=== PATIENT | female | born 1980 | race Caucasian/White ===

== ENCOUNTER 2017-06-15 10:11 | Inpatient (IN) | payer MEDICAID, SELFPAY ==
[2017-06-15] VITALS (9 sets, daily range): BP systolic 110–138; BP diastolic 65–91; PULSE 122–149; RESP 13–20; TEMP 36.8–37.9; O2SAT 97–100; BMI 26.5; BMI 24.7; BMI 24.8
--- NOTE | 2017-06-15 10:25 | RAD_ITS ---
STUDY: X-RAY CHEST REASON FOR EXAM: Female, 36 years old. Cough and shortness of breath. TECHNIQUE: Single AP portable view of the chest. COMPARISON: None. FINDINGS: The lungs are clear and expanded. There is no demonstrated pleural abnormality. Normal size heart. Normal mediastinum and joseph. Normal visualized pulmonary arteries. Normal visualized aortic arch and descending thoracic aorta. Normal visualized thoracic spine. Normal visualized ribs, clavicles, and shoulders. There is no demonstrated abnormality of the visualized soft tissue structures of the upper abdomen. RAD/Chest 1 View (Portable) IMPRESSION: Normal x-ray examination of the chest. Electronically Signed: Koko Triplett MD at 11:04 EST Tel [phone], Service support ,
--- NOTE | 2017-06-15 10:26 | ED.VISSUMM ---
- ER Visit Summary Date of Service: 06/15/17 Chief Complaint: Cough, left upper quadrant abdominal pain History of Present Illness: The patient is a 36 F who presents with the above symptoms. She has had this for about 2 days. She describes the pain as aching in the left upper quadrant. Coughing makes it worse. It does radiate to the left part of her back. She denies dysuria or hematuria. No trauma. She does admit to a productive cough. She did not check her temperature at home. She does have a history of pneumonia and bronchitis. No history of kidney stones. Physical Examination: Vital signs reviewed. Significant for tachycardia. HEENT exam unremarkable. Heart is tachycardic and regular rhythm without murmurs. Lungs are clear to auscultation. Abdomen is soft and nontender. Back Is nontender. No CVA tenderness. Extremities reveal no edema. Skin exam normal. Neurologic exam normal. Test Results: White blood count 36. Creatinine 1.48 urinalysis shows 0-5 white blood cells. Lactate 1.3. Influenza testing negative. Chest x-ray is clear. CAT scan of the flank reveals pyelonephritis with other chronic changes. Emergency Department Course and Treatment: Patient was given normal saline. She is given morphine for pain. Treatment Plan: Patient will be treated with IV Rocephin for pyelonephritis. She meets sepsis criteria and will be admitted to the hospital Disposition: Admit Impression: Sepsis, pyelonephritis This note was generated with [employer] dictation software. It may contain incorrect words, spelling, and punctuation that were not noted in review of the chart prior to signing ED Disposition - Plan for ED Patient: Chief Complaint: Chest Other Referrals: Care Physician,No Primary [Primary Care Provider] -
[2017-06-15 11:00] LABS: Color, Urine Yellow (Yellow); Glucose, Dipstick Normal (Normal); Leukocyte Esterase-Dipstick Negative /ul (Negative); Nitrite-Dipstick Negative (Negative); Occult Blood-Urine 50 /ul (Negative); Protein-Dipstick 30 mg/dl (Negative); Urine Bilirubin Dipstick Negative (Negative); Urine Clarity Sl. Cloudy (Clear); Urine Urobilinogen Normal (Normal)
[2017-06-15 11:04] LABS: ALB/GLOB Ratio 0.8 RATIO (0.9-2.4); AST(SGOT) 147 U/L (15-37); Alanine Aminotransfer ALT/SGPT 176 U/L (12-78); Albumin, Serum 3.9 g/dL (3.4-5.0); Alkaline Phosphatase 65 U/L (45-117); Anion Gap 11 (5-15); BUN 17 mg/dL (7-18); BUN/Creat Ratio 11.5 RATIO (10-20); Calcium,Total 9.4 mg/dL (8.5-10.1); Chloride 100 mmol/L (98-107); Creatinine, Serum 1.48 mg/dL (0.55-1.02); EST Glomerular Filtration Rate 43 mL/min (>60); Est Glom Filt Rate - Afr Amer 52 mL/min (>60); Estimated Creatinine Clearance 44.31 ml/min; Globulin 4.8 g/dL (2.2-4.2); Glucose 134 mg/dL (70-110); Potassium 3.7 mmol/L (3.5-5.1); Protein, Total 8.7 g/dL (6.4-8.2); Sodium Level 135 mmol/L (136-145)
[2017-06-15 11:05] LABS: Absolute Lymphocyte Count 1.34 X10^3/ul (0.83-4.51); Basophil# 0.02 X10^3/uL; Basophil% 0.1 % (0-1); Hematocrit 43.8 % (37-47); Hemoglobin 15.3 g/dl (12.0-15.0); Lymphocyte # 1.34 X10^3/ul (4.0); Lymphocyte % 3.7 % (19-41); Mean Corp Hgb Conc 34.9 g/gl (32-36); Mean Corpuscular Hgb 30.7 pg (27.0-32.0); Mean Corpuscular Volume 87.8 fL (81-99); Mean Platelet Vol. 10.8 fl (6.2-12.0); Monocyte# 2.52 X10^3/uL; Neutrophil # 31.98 X10^3/uL (2.7-7.7); Neutrophil % 88.7 % (47-70); Platelet Count 228 K/mm3 (150-450); RBC Distribution Width CV 12.8 % (11.6-14.6); RBC Distribution Width SD 40.2 fl (35.1-43.9); Red Blood Count 4.99 M/mm3 (4.2-5.4)
[2017-06-15 11:09] LABS: Internal QC Validated? YES +Cl - CLEAR BKGD; Pregnancy, Urine Negative Negative
[2017-06-15 11:11] LABS: Lactic Acid 1.3 mmol/L (0.4-2.0)
[2017-06-15 11:13] LABS: Differential Indicated SCAN CRITERIA MET; POSITIVE COUNT YES; POSITIVE DIFFERENTIAL YES; POSITIVE MORPHOLOGY NO
--- NOTE | 2017-06-15 11:13 | ED.RN ---
WBC 36.[address] LAB DR ROBERTS AWARE
[2017-06-15 11:19] LABS: Ketone-Dipstick 150 mg/dl (Negative)
[2017-06-15 11:22] LABS: Bacteria 1+ /hpf (None Seen); Mucous, Urine RARE /hpf (<or=2+); Red Blood Cells-Urine 0-5 SEEN /hpf (0-5); Squamous Epithelial Cells - UA 0-5 SEEN /hpf (5-10); White Blood Cells 0-5 SEEN /hpf (0-5)
--- NOTE | 2017-06-15 12:54 | CT_ITS ---
STUDY: CT ABDOMEN AND PELVIS WITH CONTRAST REASON FOR EXAM: Female, 36 years old. Shortness of breath and left lower quadrant pain for 2 days. RADIATION DOSAGE (If Supplied By Facility): CTDIvol = ( 10.19 ) mGy, DLP = ( 804.66 ) mGycm TECHNIQUE: Transaxial images were obtained from the dome of the diaphragm to the symphysis pubis without oral contrast. 100ML ml of Isovue 300 contrast was administered. Sagittal and coronal images were reconstructed. Individualized dose optimization techniques were used for this CT. COMPARISON: None. FINDINGS: There is mild elevation of right diaphragm. The visualized lung bases are unremarkable. The visualized portions of the heart are within normal limits. Normal liver. The patent portal vein diameter is 12.5 mm. Normal gallbladder and extrahepatic biliary system. The diameter of the common bile duct in the head of the pancreas is 3 mm. Normal spleen. Normal pancreas. Normal bilateral adrenal glands. Normal right kidney, measuring 10.7 x 5.1 x 5.5 cm. There is a diffusely abnormal appearing left kidney, measuring 11.05 x 6.1 x 5.35 cm. There is a patchy pattern of enhancement, with zones of virtually absent enhancement extending all the way from the hilus to the capsule. This is most confluent in the upper pole. There is small volume of perinephric fluid. Contrast is excreted on delayed imaging. No hydronephrosis. Normal visualized stomach. 2 loops of mildly distended gas and fluid-filled small bowel in the epigastrium/left upper quadrant may be incidental, but could also reflect a mild localized ileus. Otherwise, normal small intestine. Normal colon. There is non-visualization of the appendix. Normal abdominal aorta. Normal inferior vena cava. There are several borderline to mildly enlarged periaortic retroperitoneal lymph nodes. Normal urinary bladder. Normal size retroverted uterus. Rounded 8 mm lesion in the body of the uterus anterior to the endometrium consistent with a small fibroid, and there may be a less distinctly defined 2. 201.7 x 2.25 cm anterior subserosal fibroid. There is a thinly rim-enhancing 8 mm low-density consistent with a maturing follicular cyst in the left ovary. 2 cysts are suggested in the right ovary, the larger measuring 15 x 7.5 x 11 mm Normal abdominal wall. There are degenerative changes of the visualized lumbar spine. CT/Abdomen/Pelvis W IV Cont ONLY IMPRESSION: 1. Abnormal appearance of the left kidney suggesting pyelonephritis. Other infiltrating benign or malignant process not excluded by this exam alone. No hydronephrosis. 2. No sign of bowel obstruction. The appendix is not visualized. 3. Borderline to mildly enlarged periaortic retroperitoneal lymph nodes, likely reactive. 4. Retroverted uterus with anterior myometrial masses consistent with fibroids. 5. Bilateral follicular cysts in the ovaries, as noted. 6. Mild degenerative changes in the mid lumbar spine. N.B. : The above information has been verbally conveyed by Kehinde Mcclain MD to Leighton Dyer, Referring Physician, on 06/15/2017 14:37:36 (ET). Electronically Signed: Kehinde Mcclain MD at 14:38 EST , Service support , N.B. : The above information has been verbally conveyed by Kehinde Mcclain MD to Leighton Dyer, Referring Physician, on 06/15/2017 14:37:36 (ET).
[2017-06-15] MEDS: 0.9% Normal Saline 1,000 ML 999 ML IV (13:01)
[2017-06-15] MEDS: Ondansetron 4 MG/2 ML Vial IV (13:02)
--- NOTE | 2017-06-15 15:21 | PCM.HP.STD ---
Problem List (1) HERBER (acute kidney injury) Status: Acute (2) Pyelonephritis Status: Acute (3) Sepsis Status: Acute (4) Tobacco dependence Status: Chronic (5) Polysubstance abuse Status: Chronic History of Present Illness Date of Admission: 06/15/17 Chief Complaint: Left flank pain The patient is a 36 year old F with past medical history significant for polysubstance abuse including meth and tobacco who presented with left flank pain. Patient complains of a 2 week history of not feeling well she has developed intermittent fever and chills. She also felt her heart was racing. In view of worsening symptoms patient presented to the emergency department where she was found to have leukocytosis without any identifiable etiology. Subsequent evaluation with CT of the abdomen demonstrated features consistent with left pyelonephritis patient was therefore started on antibiotic therapy IV fluid and admitted to regular nursing floor for further management Past Medical History Past Medical History (Chronic Problems): Chronic Problems Tobacco dependence (Chronic) Polysubstance abuse (Chronic) Allergies No Known Allergies Allergy (Verified 08/12/16 01:52) Home Medications: Ambulatory Orders Medication Instructions Recorded No Known/Unobtainable [No Known 08/12/16 Home Medications] Smoking Status: Current every day smoker - *Family History Maternal History Items: No pertinent history Review of Systems Constitutional: Reports: Chills, Fever, Malaise HEENT: Denies: Head Aches, Sinus Congestion, Sinus Drainage Cardiovascular: Denies: Chest Pain, Orthopnea, Palpitations, Paroxysmal Noc. Dyspnea Respiratory: Reports: Cough Gastrointestinal: Reports: Abdominal Pain Genitourinary: Denies: Hematuria, Urgency Musculoskeletal: Denies: Joint Pain, Joint Tenderness Skin: Denies: Rash Neurological: Denies: Focal weakness, Numbness, Tingling Psychiatric: Reports: Anxiety, Depression VTE Information - Inpt Only VTE Present on Admission: No VTE Mechan Device Prophylaxis: Knee High MARY ANN Hose VTE Pharm Prophylaxis ordered?: Yes Patient Problems: Active and Suspected Problems Pyelonephritis (Acute) Sepsis (Acute) HERBER (acute kidney injury) (Acute) Objective: GENERAL: cooperative HEENT: Clear conjunctiva, NECK; supple, normal thyroid, CHEST: Clear to auscultation bilaterally, HEART: Regular S1 S2 tachycardic ABDOMEN: soft, non-tender, normoactive bowel sounds, : Left flank tenderness EXTREMITIES: No edema, no clubbing, no cyanosis. 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 SKIN: No rash - Physical Exam Vital Signs Temp Pulse Resp BP Pulse Ox 98.3 F 126 H 18 128/91 H 97 06/15/17 10:13 06/15/17 15:19 06/15/17 15:19 06/15/17 15:19 06/15/17 15:19 Oxygen Delivery Method Room Air Weight: 68.039 kg Body Mass Index (BMI) 26.5 Microbiology Past 72 Hours 06/15/17 11:47 Influenza Types A,B Direct FA (BHARATI) - Final Mucosa - Nose Laboratory Tests Past 24 Hrs 06/15/17 06/15/17 06/15/17 10:36 10:36 10:36 WBC 36.0 H* RBC 4.99 Hgb 15.3 H Hct 43.8 MCV 87.8 MCH 30.7 MCHC 34.9 RDW 12.8 RDW Differential 40.2 Plt Count 228 MPV 10.8 Immature Gran % (Auto) 0.500 Neut % (Auto) 88.7 H Lymph % (Auto) 3.7 L [place] % (Auto) 7.0 Eos % (Auto) 0.0 Baso % (Auto) 0.1 Absolute Neuts (auto) 32.0 H Absolute Lymphs (auto) 1.34 Total Counted Not Reportable Differential Comment COMMENT Diff Path Review May foll Sodium 135 L Potassium 3.7 Chloride 100 Carbon Dioxide 24.0 Anion Gap 11 BUN 17 Creatinine 1.48 H Estim Creat Clear Calc 44.31 Est GFR (MDRD) Af Amer 52 L Est GFR (MDRD) Non-Af 43 L BUN/Creatinine Ratio 11.5 Glucose 134 H Lactic Acid 1.3 Calcium 9.4 Total Bilirubin 0.80 AST 147 H ALT 176 H Alkaline Phosphatase 65 Total Protein 8.7 H Albumin 3.9 Globulin 4.8 H Albumin/Globulin Ratio 0.8 L Urine Color Urine Clarity Urine pH Ur Specific [place] Urine Protein Urine Glucose (UA) Urine Ketones Urine Occult Blood Urine Nitrite Urine Bilirubin Urine Urobilinogen Ur Leukocyte Esterase Urine RBC Urine WBC Ur Squamous Epith Cells Urine Bacteria Urine Mucus Urine Test 06/15/17 10:50 WBC RBC Hgb Hct MCV MCH MCHC RDW RDW Differential Plt Count MPV Immature Gran % (Auto) Neut % (Auto) Lymph % (Auto) [place] % (Auto) Eos % (Auto) Baso % (Auto) Absolute Neuts (auto) Absolute Lymphs (auto) Total Counted Differential Comment Diff Path Review Sodium Potassium Chloride Carbon Dioxide Anion Gap BUN Creatinine Estim Creat Clear Calc Est GFR (MDRD) Af Amer Est GFR (MDRD) Non-Af BUN/Creatinine Ratio Glucose Lactic Acid Calcium Total Bilirubin AST ALT Alkaline Phosphatase Total Protein Albumin Globulin Albumin/Globulin Ratio Urine Color Yellow Urine Clarity Sl. Cloudy Urine pH 6.0 Ur Specific [place] 1.020 Urine Protein 30 H Urine Glucose (UA) Normal Urine Ketones 150 H Urine Occult Blood 50 H Urine Nitrite Negative Urine Bilirubin Negative Urine Urobilinogen Normal Ur Leukocyte Esterase Negative Urine RBC 0-5 SEEN Urine WBC 0-5 SEEN Ur Squamous Epith Cells 0-5 SEEN Urine Bacteria 1+ Urine Mucus RARE Urine Test Negative Assessment/Plan Active and Suspected Problems Pyelonephritis (Acute) Sepsis (Acute) HERBER (acute kidney injury) (Acute) Patient is a 36-year-old lady presented with left flank pain leukocytosis as well as subjective fever and chills 1. Sepsis secondary to acute pyelonephritis involving the left kidney admitted to a regular nursing floor after cultures have been obtained in the ED patient placed on Rocephin IV fluids, pain medications as well as antinausea medication 2. Acute kidney injury secondary to above patient on fluids with monitoring of electrolyte 3. Tobacco dependence counseled on cessation, offered nicotine patch for tobacco cravings 4. Polysubstance abuse counseled on cessation 5. DVT prophylaxis SC Lovenox Clinical Impression(s) from Imaging Studies Chest X-Ray 06/15/17 10:25 IMPRESSION: Normal x-ray examination of the chest. Electronically Signed: Koko Triplett MD at 11:04 EST Tel [phone], Service support , Abdomen/Pelvis CT 06/15/17 12:54 IMPRESSION: 1. Abnormal appearance of the left kidney suggesting pyelonephritis. Other infiltrating benign or malignant process not excluded by this exam alone. No hydronephrosis. 2. No sign of bowel obstruction. The appendix is not visualized. 3. Borderline to mildly enlarged periaortic retroperitoneal lymph nodes, likely reactive. 4. Retroverted uterus with anterior myometrial masses consistent with fibroids. 5. Bilateral follicular cysts in the ovaries, as noted. 6. Mild degenerative changes in the mid lumbar spine. N.B. : The above information has been verbally conveyed by Kehinde Mcclain MD to Leighton Dyer, Referring Physician, on 06/15/2017 14:37:36 (ET). Electronically Signed: Kehinde Mcclain MD at 14:38 EST , Service support , N.B. : The above information has been verbally conveyed by Kehinde Mcclain MD to Leighton Dyer, Referring Physician, on 06/15/2017 14:37:36 (ET). Code Visit Inpatient E&M: 77320 Subs Hosp L3
--- NOTE | 2017-06-15 15:32 | HP.PCM_ITS ---
Problem List (1) HERBER (acute kidney injury) Status: Acute (2) Pyelonephritis Status: Acute (3) Sepsis Status: Acute (4) Tobacco dependence Status: Chronic (5) Polysubstance abuse Status: Chronic History of Present Illness Date of Admission: 06/15/17 Chief Complaint: Left flank pain The patient is a 36 year old F with past medical history significant for polysubstance abuse including meth and tobacco who presented with left flank pain. Patient complains of a 2 week history of not feeling well she has developed intermittent fever and chills. She also felt her heart was racing. In view of worsening symptoms patient presented to the emergency department where she was found to have leukocytosis without any identifiable etiology. Subsequent evaluation with CT of the abdomen demonstrated features consistent with left pyelonephritis patient was therefore started on antibiotic therapy IV fluid and admitted to regular nursing floor for further management Past Medical History Past Medical History (Chronic Problems): Chronic Problems Tobacco dependence (Chronic) Polysubstance abuse (Chronic) Allergies No Known Allergies Allergy (Verified 08/12/16 01:52) Home Medications: Ambulatory Orders Medication Instructions Recorded No Known/Unobtainable [No Known 08/12/16 Home Medications] Smoking Status: Current every day smoker - *Family History Maternal History Items: No pertinent history Review of Systems Constitutional: Reports: Chills, Fever, Malaise HEENT: Denies: Head Aches, Sinus Congestion, Sinus Drainage Cardiovascular: Denies: Chest Pain, Orthopnea, Palpitations, Paroxysmal Noc. Dyspnea Respiratory: Reports: Cough Gastrointestinal: Reports: Abdominal Pain Genitourinary: Denies: Hematuria, Urgency Musculoskeletal: Denies: Joint Pain, Joint Tenderness Skin: Denies: Rash Neurological: Denies: Focal weakness, Numbness, Tingling Psychiatric: Reports: Anxiety, Depression VTE Information - Inpt Only VTE Present on Admission: No VTE Mechan Device Prophylaxis: Knee High MARY ANN Hose VTE Pharm Prophylaxis ordered?: Yes Patient Problems: Active and Suspected Problems Pyelonephritis (Acute) Sepsis (Acute) HERBER (acute kidney injury) (Acute) Objective: GENERAL: cooperative HEENT: Clear conjunctiva, NECK; supple, normal thyroid, CHEST: Clear to auscultation bilaterally, HEART: Regular S1 S2 tachycardic ABDOMEN: soft, non-tender, normoactive bowel sounds, : Left flank tenderness EXTREMITIES: No edema, no clubbing, no cyanosis. 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 SKIN: No rash - Physical Exam Vital Signs Temp Pulse Resp BP Pulse Ox 98.3 F 126 H 18 128/91 H 97 06/15/17 10:13 06/15/17 15:19 06/15/17 15:19 06/15/17 15:19 06/15/17 15:19 Oxygen Delivery Method Room Air Weight: 68.039 kg Body Mass Index (BMI) 26.5 Microbiology Past 72 Hours 06/15/17 11:47 Influenza Types A,B Direct FA (BHARATI) - Final Mucosa - Nose Laboratory Tests Past 24 Hrs 06/15/17 06/15/17 06/15/17 10:36 10:36 10:36 WBC 36.0 H* RBC 4.99 Hgb 15.3 H Hct 43.8 MCV 87.8 MCH 30.7 MCHC 34.9 RDW 12.8 RDW Differential 40.2 Plt Count 228 MPV 10.8 Immature Gran % (Auto) 0.500 Neut % (Auto) 88.7 H Lymph % (Auto) 3.7 L [place] % (Auto) 7.0 Eos % (Auto) 0.0 Baso % (Auto) 0.1 Absolute Neuts (auto) 32.0 H Absolute Lymphs (auto) 1.34 Total Counted Not Reportable Differential Comment COMMENT Diff Path Review May foll Sodium 135 L Potassium 3.7 Chloride 100 Carbon Dioxide 24.0 Anion Gap 11 BUN 17 Creatinine 1.48 H Estim Creat Clear Calc 44.31 Est GFR (MDRD) Af Amer 52 L Est GFR (MDRD) Non-Af 43 L BUN/Creatinine Ratio 11.5 Glucose 134 H Lactic Acid 1.3 Calcium 9.4 Total Bilirubin 0.80 AST 147 H ALT 176 H Alkaline Phosphatase 65 Total Protein 8.7 H Albumin 3.9 Globulin 4.8 H Albumin/Globulin Ratio 0.8 L Urine Color Urine Clarity Urine pH Ur Specific [place] Urine Protein Urine Glucose (UA) Urine Ketones Urine Occult Blood Urine Nitrite Urine Bilirubin Urine Urobilinogen Ur Leukocyte Esterase Urine RBC Urine WBC Ur Squamous Epith Cells Urine Bacteria Urine Mucus Urine Test 06/15/17 10:50 WBC RBC Hgb Hct MCV MCH MCHC RDW RDW Differential Plt Count MPV Immature Gran % (Auto) Neut % (Auto) Lymph % (Auto) [place] % (Auto) Eos % (Auto) Baso % (Auto) Absolute Neuts (auto) Absolute Lymphs (auto) Total Counted Differential Comment Diff Path Review Sodium Potassium Chloride Carbon Dioxide Anion Gap BUN Creatinine Estim Creat Clear Calc Est GFR (MDRD) Af Amer Est GFR (MDRD) Non-Af BUN/Creatinine Ratio Glucose Lactic Acid Calcium Total Bilirubin AST ALT Alkaline Phosphatase Total Protein Albumin Globulin Albumin/Globulin Ratio Urine Color Yellow Urine Clarity Sl. Cloudy Urine pH 6.0 Ur Specific [place] 1.020 Urine Protein 30 H Urine Glucose (UA) Normal Urine Ketones 150 H Urine Occult Blood 50 H Urine Nitrite Negative Urine Bilirubin Negative Urine Urobilinogen Normal Ur Leukocyte Esterase Negative Urine RBC 0-5 SEEN Urine WBC 0-5 SEEN Ur Squamous Epith Cells 0-5 SEEN Urine Bacteria 1+ Urine Mucus RARE Urine Test Negative Assessment/Plan Active and Suspected Problems Pyelonephritis (Acute) Sepsis (Acute) HERBER (acute kidney injury) (Acute) Patient is a 36-year-old lady presented with left flank pain leukocytosis as well as subjective fever and chills 1. Sepsis secondary to acute pyelonephritis involving the left kidney admitted to a regular nursing floor after cultures have been obtained in the ED patient placed on Rocephin IV fluids, pain medications as well as antinausea medication 2. Acute kidney injury secondary to above patient on fluids with monitoring of electrolyte 3. Tobacco dependence counseled on cessation, offered nicotine patch for tobacco cravings 4. Polysubstance abuse counseled on cessation 5. DVT prophylaxis SC Lovenox Clinical Impression(s) from Imaging Studies Chest X-Ray 06/15/17 10:25 IMPRESSION: Normal x-ray examination of the chest. Electronically Signed: Koko Triplett MD at 11:04 EST Tel [phone], Service support , Abdomen/Pelvis CT 06/15/17 12:54 IMPRESSION: 1. Abnormal appearance of the left kidney suggesting pyelonephritis. Other infiltrating benign or malignant process not excluded by this exam alone. No hydronephrosis. 2. No sign of bowel obstruction. The appendix is not visualized. 3. Borderline to mildly enlarged periaortic retroperitoneal lymph nodes, likely reactive. 4. Retroverted uterus with anterior myometrial masses consistent with fibroids. 5. Bilateral follicular cysts in the ovaries, as noted. 6. Mild degenerative changes in the mid lumbar spine. N.B. : The above information has been verbally conveyed by Kehinde Mcclain MD to Leighton Dyer, Referring Physician, on 06/15/2017 14:37:36 (ET). Electronically Signed: Kehinde Mcclain MD at 14:38 EST , Service support , N.B. : The above information has been verbally conveyed by Kehinde Mcclain MD to Leighton Dyer, Referring Physician, on 06/15/2017 14:37:36 (ET). Code Visit Inpatient E&M: 05235 Subs Hosp L3
[2017-06-15 17:00] LABS: Hematocrit 44.5 % (37-47); Hemoglobin 14.9 g/dl (12.0-15.0); Mean Corp Hgb Conc 33.5 g/gl (32-36); Mean Corpuscular Hgb 30.6 pg (27.0-32.0); Mean Corpuscular Volume 91.4 fL (81-99); Mean Platelet Vol. 10.3 fl (6.2-12.0); Platelet Count 183 K/mm3 (150-450); RBC Distribution Width CV 12.9 % (11.6-14.6); RBC Distribution Width SD 42.7 fl (35.1-43.9); Red Blood Count 4.87 M/mm3 (4.2-5.4)
[2017-06-15] MEDS: 0.9% Normal Saline 1,000 ML 100 ML IV (17:01)
[2017-06-15 17:04] LABS: White Blood Count 32.2 K/mm3 (4.4-11.0)
[2017-06-15 17:08] LABS: International Normalized Ratio 1.5; Prothrombin Time (Protime)PT. 17.9 SECONDS (11.7-14.9)
[2017-06-15 17:09] LABS: Partial Thromboplast Time 27.3 Seconds (24.1-36.2)
[2017-06-15 17:17] LABS: ALB/GLOB Ratio 0.9 RATIO (0.9-2.4); AST(SGOT) 117 U/L (15-37); Alanine Aminotransfer ALT/SGPT 141 U/L (12-78); Albumin, Serum 3.6 g/dL (3.4-5.0); Alkaline Phosphatase 65 U/L (45-117); Anion Gap 8 (5-15); BUN 16 mg/dL (7-18); BUN/Creat Ratio 11.9 RATIO (10-20); Chloride 103 mmol/L (98-107); Creatinine, Serum 1.34 mg/dL (0.55-1.02); EST Glomerular Filtration Rate 48 mL/min (>60); Est Glom Filt Rate - Afr Amer 58 mL/min (>60); Estimated Creatinine Clearance 48.93 ml/min; Globulin 4.2 g/dL (2.2-4.2); Glucose 121 mg/dL (70-110); Potassium 4.3 mmol/L (3.5-5.1); Protein, Total 7.8 g/dL (6.4-8.2); Sodium Level 135 mmol/L (136-145)
[2017-06-15 17:25] LABS: Scan Indicated on CBC? Y/N YES- FLAGS NOTED
[2017-06-15 17:34] LABS: Lactic Acid 0.7 mmol/L (0.4-2.0)
--- NOTE | 2017-06-15 17:38 | NURSING ---
This nurse into room as yelling was noted between patient and male visitor. Male visitor left when this nurse entered room. Pt informed that there could not be yelling in the hospital. Pt stated that male visitor would not be coming back. Pt aware that if he came back and caused any issues, he would be asked to leave. pt aware.
[2017-06-15] MEDS: Acetaminophen 325 MG Tablet 650 MG PO (21:38)
[2017-06-15] MEDS: Zolpidem Tartrate 5 MG Tablet PO (21:39)
[2017-06-16] MEDS: Acetaminophen 325 MG Tablet 650 MG PO ×3 (04:04→20:05)
[2017-06-16] MEDS: 0.9% Normal Saline 1,000 ML 100 ML IV ×3 (04:05→22:13)
[2017-06-16 04:10] VITALS: BP 128/78; PULSE 116; RESP 18; TEMP 36.7; O2SAT 99
[2017-06-16] MEDS: Ceftriaxone 1 GM/50 ML BAG IV (09:26)
[2017-06-16] MEDS: Enoxaparin 40 MG/0.4 ML Syringe SC (09:29)
[2017-06-16] MEDS: Polyethylene Glycol 3350 17 GM PACKET PO (09:30)
[2017-06-16 09:32] VITALS: BP 126/85; PULSE 110; RESP 16; TEMP 36.8; O2SAT 100
--- NOTE | 2017-06-16 10:03 | PN_ITS ---
Patient Problems: Active and Suspected Problems Pyelonephritis (Acute) Sepsis (Acute) HERBER (acute kidney injury) (Acute) Subjective: Patient is a 36-year-old lady presented with left flank pain leukocytosis as well as subjective fever and chills and assessment of acute pyelonephritis made admitted to a regular nursing floor. Patient seen pain is somewhat improved however her leukocytosis remains Objective: GENERAL: cooperative HEENT: Clear conjunctiva, NECK; supple, normal thyroid, CHEST: Clear to auscultation bilaterally, HEART: Regular S1 S2 tachycardic ABDOMEN: soft, non-tender, normoactive bowel sounds, : Left flank tenderness EXTREMITIES: No edema, no clubbing, no cyanosis. 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 SKIN: No rash Vitals/I&O's: Vital Signs Temp Pulse Resp BP Pulse Ox 98.3 F 110 H 16 126/85 H 100 06/16/17 09:32 06/16/17 09:32 06/16/17 09:32 06/16/17 09:32 06/16/17 09:32 Oxygen Delivery Method Room Air Weight: 63.4 kg Body Mass Index (BMI) 24.7 Intake and Output for Last 24 Hours 06/14/17 06/15/17 06/16/17 23:59 23:59 23:59 Intake Total 500 / 500 1343 / 1343 Balance 500 / 500 1343 / 1343 Laboratory Results 06/15/17 16:47: WBC 32.2 H*, RBC 4.87, Hgb 14.9, Hct 44.5, MCV 91.4, MCH 30.6, MCHC 33.5, RDW 12.9, RDW Differential 42.7, Plt Count 183, MPV 10.3, Diff Path Review October06/15/17 16:47: PT 17.9 H, INR 1.5, APTT 27.3 06/15/17 16:47: Sodium 135 L, Potassium 4.3, Chloride 103, Carbon Dioxide 24.0, Anion Gap 8, BUN 16, Creatinine 1.34 H, Estim Creat Clear Calc 48.93, Est GFR ( MDRD) Af Amer 58 L, Est GFR (MDRD) Non-Af 48 L, BUN/Creatinine Ratio 11.9, Glucose 121 H, Calcium 9.0, Total Bilirubin 0.70, AST 117 H, ALT 141 H, Alkaline Phosphatase 65, Total Protein 7.8, Albumin 3.6, Globulin 4.2, Albumin/ Globulin Ratio 0.9 06/15/17 16:47: Lactic Acid 0.7 Current Medications Acetaminophen (Tylenol) 650 mg PO Q6H PRN PRN PRN Reason: Mild Pain (scale 0-3)/T>100.7 Last Admin: 06/16/17 04:04 Dose: 650 mg Al Hydroxide/Mg Hydroxide (Mylanta Ii) 30 ml PO Q6H PRN PRN PRN Reason: Gastric Burning Bisacodyl (Dulcolax) 10 mg PO DAILY PRN PRN PRN Reason: Constipation Docusate Sodium (Colace) 200 mg PO BID PRN PRN PRN Reason: Constipation Enoxaparin Sodium (Lovenox) 40 mg SC DAILY@1000 TONIA Last Admin: 06/16/17 09:29 Dose: 40 mg Sodium Chloride () 1,000 mls @ 100 mls/hr IV .Q10H [facility] Last Admin: 06/16/17 04:05 Dose: 100 mls/hr Ceftriaxone Sodium (Rocephin) 1 gm in 50 mls @ 100 mls/hr IV Q24H [facility] Last Admin: 06/16/17 09:26 Dose: 100 mls/hr Magnesium Hydroxide (Milk Of Magnesia) 30 ml PO DAILY PRN PRN PRN Reason: Constipation Morphine Sulfate (Morphine) 2 - 4 mg IV Q3H PRN PRN PRN Reason: Severe Pain (pain scale 6-10) Morphine Sulfate (Morphine) 2 - 4 mg IV Q3H PRN PRN PRN Reason: Severe Pain (pain scale 6-10) Ondansetron HCl (Zofran) 4 mg IV Q8H PRN PRN PRN Reason: Nausea Oxycodone HCl (Oxyir) 5 mg PO Q4H PRN PRN PRN Reason: Moderate Pain (pain scale 4-5) Polyethylene Glycol (Miralax) 17 gm PO DAILY [facility] Last Admin: 06/16/17 09:30 Dose: 17 gm Sodium Chloride () 5 - 30 ml IV UD PRN PRN Reason: SALINE FLUSH Zolpidem Tartrate (Ambien (Generic)) 5 mg PO QHS PRN PRN PRN Reason: INSOMNIA Last Admin: 06/15/17 21:39 Dose: 5 mg Assessment/Plan Active and Suspected Problems Pyelonephritis (Acute) Sepsis (Acute) HERBER (acute kidney injury) (Acute) Patient is a 36-year-old lady presented with left flank pain leukocytosis as well as subjective fever and chills 1. Sepsis secondary to acute pyelonephritis involving the left kidney admitted to a regular nursing floor after cultures have been obtained in the ED patient placed on Rocephin IV fluids, pain medications as well as antinausea medication. Patient has significant leukocytosis with still remains 2. Acute kidney injury secondary to above patient on fluids with monitoring of electrolyte; slight improvement in kidney function 3. Tobacco dependence counseled on cessation, offered nicotine patch for tobacco cravings 4. Polysubstance abuse counseled on cessation 5. DVT prophylaxis SC Lovenox Clinical Impression(s) from Imaging Studies Chest X-Ray 06/15/17 10:25 IMPRESSION: Normal x-ray examination of the chest. Electronically Signed: Koko Triplett MD at 11:04 EST Tel [phone], Service support , Abdomen/Pelvis CT 06/15/17 12:54 IMPRESSION: 1. Abnormal appearance of the left kidney suggesting pyelonephritis. Other infiltrating benign or malignant process not excluded by this exam alone. No hydronephrosis. 2. No sign of bowel obstruction. The appendix is not visualized. 3. Borderline to mildly enlarged periaortic retroperitoneal lymph nodes, likely reactive. 4. Retroverted uterus with anterior myometrial masses consistent with fibroids. 5. Bilateral follicular cysts in the ovaries, as noted. 6. Mild degenerative changes in the mid lumbar spine. N.B. : The above information has been verbally conveyed by Kehinde Mcclain MD to Leighton Dyer, Referring Physician, on 06/15/2017 14:37:36 (ET). Electronically Signed: Kehinde Mcclain MD at 14:38 EST , Service support , N.B. : The above information has been verbally conveyed by Kehinde cMclain MD to Leighton Dyer, Referring Physician, on 06/15/2017 14:37:36 (ET). Code Visit Inpatient E&M: 64664 Subs Hosp L3
[2017-06-16 11:04] LABS: Pathologist Review Reviewed
[2017-06-16 11:05] LABS: Pathologist Review Reviewed
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
--- NOTE | 2017-06-16 14:51 | CASEMGMT ---
RN CM assessment note: Pt presented to ER with L flank pain, independent @ home.Pt is sleeping. Noted Pastoral care's note and referral for assessment given to GEN Diaz. Will continue to follow and assist w/dc planning if needs arise. Elizabeth FERRON RN ACM
[2017-06-16 15:49] VITALS: BP 122/79; PULSE 103; RESP 16; TEMP 37.3; O2SAT 98
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
[2017-06-16 21:49] VITALS: BP 117/78; PULSE 102; RESP 18; TEMP 37.6; O2SAT 96
[2017-06-16 21:58] VITALS: PULSE 102; RESP 18; O2SAT 96
[2017-06-17 02:23] VITALS: BP 116/7; PULSE 96; RESP 18; TEMP 38.6; O2SAT 97
[2017-06-17 02:30] VITALS: RESP 18; O2SAT 97
[2017-06-17 04:34] VITALS: BP 114/74; PULSE 85; RESP 18; TEMP 37.4; O2SAT 96
[2017-06-17 06:11] LABS: Absolute Lymphocyte Count 2.15 X10^3/ul (0.83-4.51); Absolute Neutrophil Count 12.5 X10^3/uL (2.0-7.7); Basophil# 0.01 X10^3/uL; Basophil% 0.1 % (0-1); Eosinophil# 0.09 X10^3/uL; Eosinophils% 0.6 % (0-5); Hematocrit 32.9 % (37-47); Hemoglobin 10.8 g/dl (12.0-15.0); Lymphocyte # 2.15 X10^3/ul (4.0); Lymphocyte % 13.4 % (19-41); Mean Corp Hgb Conc 32.8 g/gl (32-36); Mean Corpuscular Hgb 29.8 pg (27.0-32.0); Mean Corpuscular Volume 90.9 fL (81-99); Monocyte# 1.31 X10^3/uL; Monocyte% 8.1 % (0-10); Neutrophil # 12.47 X10^3/uL (2.7-7.7); Neutrophil % 77.5 % (47-70); Platelet Count 136 K/mm3 (150-450); RBC Distribution Width CV 12.6 % (11.6-14.6); RBC Distribution Width SD 40.9 fl (35.1-43.9); Red Blood Count 3.62 M/mm3 (4.2-5.4); White Blood Count 16.1 K/mm3 (4.4-11.0)
[2017-06-17 06:14] LABS: POSITIVE COUNT NO; POSITIVE DIFFERENTIAL NO; POSITIVE MORPHOLOGY NO
[2017-06-17 06:56] LABS: Anion Gap 8 (5-15); BUN 13 mg/dL (7-18); BUN/Creat Ratio 14.5 RATIO (10-20); Calcium,Total 8.2 mg/dL (8.5-10.1); Chloride 110 mmol/L (98-107); EST Glomerular Filtration Rate 76 mL/min (>60); Est Glom Filt Rate - Afr Amer 92 mL/min (>60); Estimated Creatinine Clearance 72.86 ml/min; Glucose 105 mg/dL (70-110); Potassium 3.7 mmol/L (3.5-5.1); Sodium Level 140 mmol/L (136-145)
[2017-06-17] MEDS: 0.9% Normal Saline 1,000 ML 100 ML IV (07:00)
--- NOTE | 2017-06-17 08:58 | PCM.DC ---
- Discharge Diagnoses Current Active Problems: Current Active and Chronic Problems Pyelonephritis (Acute) Sepsis (Acute) Tobacco dependence (Chronic) Polysubstance abuse (Chronic) HERBER (acute kidney injury) (Acute) You will use the following diet at home:: No restrictions Discharge Activity: Return to Normal Activity, May not drive while taking narcotic pain medications. Allergies/Adverse Reactions: Allergies No Known Allergies Allergy (Verified 08/12/16 01:52) Medications to take at Discharge Citalopram Hydrobromide [Celexa] 20 mg PO DAILY #60 tab 06/17/17 Levofloxacin [Levaquin] 500 mg PO DAILY #7 tab 06/17/17 The following prescriptions were given: Citalopram Hydrobromide [Celexa] 20 mg PO DAILY #60 tab Levofloxacin [Levaquin] 500 mg PO DAILY #7 tab Primary Care Physician: Care Physician,No Primary [Primary Care Provider] - Please Follow Up With: Lottie Morocho MD When: Tuesday Proposed Discharge Date: 06/17/17
--- NOTE | 2017-06-17 09:00 | PCM.DC.SUM ---
Discharge Date and Diagnosis - Problem List Patient Problems: Active and Suspected Problems Pyelonephritis (Acute) Sepsis (Acute) HERBER (acute kidney injury) (Acute) Date of Admission: 06/15/17 Date of Discharge: 06/17/17 - Primary Discharge Diagnosis Active and Suspected Problems Pyelonephritis (Acute) Sepsis (Acute) HERBER (acute kidney injury) (Acute) - Secondary Discharge Diagnosis Chronic Problems Tobacco dependence (Chronic) Polysubstance abuse (Chronic) Hospital Course and Treatment Imaging Results: Clinical Impression(s) from Imaging Studies Chest X-Ray 06/15/17 10:25 IMPRESSION: Normal x-ray examination of the chest. Electronically Signed: Koko Triplett MD at 11:04 EST Tel [phone], Service support , Abdomen/Pelvis CT 06/15/17 12:54 IMPRESSION: 1. Abnormal appearance of the left kidney suggesting pyelonephritis. Other infiltrating benign or malignant process not excluded by this exam alone. No hydronephrosis. 2. No sign of bowel obstruction. The appendix is not visualized. 3. Borderline to mildly enlarged periaortic retroperitoneal lymph nodes, likely reactive. 4. Retroverted uterus with anterior myometrial masses consistent with fibroids. 5. Bilateral follicular cysts in the ovaries, as noted. 6. Mild degenerative changes in the mid lumbar spine. N.B. : The above information has been verbally conveyed by Kehinde Mcclain MD to Leighton Dyer, Referring Physician, on 06/15/2017 14:37:36 (ET). Electronically Signed: Kehinde Mcclain MD at 14:38 EST , Service support , N.B. : The above information has been verbally conveyed by Kehinde Mcclain MD to Leighton Dyer, Referring Physician, on 06/15/2017 14:37:36 (ET). Summary of Care Provided: Patient is a 36-year-old lady presented with left flank pain leukocytosis as well as subjective fever and chills 1. Sepsis secondary to acute pyelonephritis involving the left kidney admitted to a regular nursing floor after cultures have been obtained in the ED patient placed on Rocephin IV fluids, pain medications as well as antinausea medication. Since significant leukocytosis did improve. Cultures grew only mixed organisms. Patient was discharged home on Levaquin 500 mg for additional 7 days 2. Acute kidney injury secondary secondary to ATN from sepsis resolved with IV fluids and treatment of patient underlying condition 3. Tobacco dependence counseled on cessation, offered nicotine patch for tobacco cravings 4. Polysubstance abuse counseled on cessation 5. DVT prophylaxis SC Lovenox 6. Depression patient requested for prescription of Celexa on discharge Discharge Diet: No Restrictions Discharge Activity: Return to Normal Activity, May not drive while taking narcotic pain medications. Home Medications: Medications to take at Discharge Citalopram Hydrobromide [Celexa] 20 mg PO DAILY #60 tab 06/17/17 Levofloxacin [Levaquin] 500 mg PO DAILY #7 tab 06/17/17 Following Prescrptions Were Given to Patient: Citalopram Hydrobromide [Celexa] 20 mg PO DAILY #60 tab Levofloxacin [Levaquin] 500 mg PO DAILY #7 tab Primary Care Physician: Care Physician,No Primary [Primary Care Provider] - Please Follow Up With: Lottie Morocho MD When: Tuesday Disposition: Home Minutes spent on discharge:: 35 Meaningful Use Info Meaningful Use Diagnoses (Choose all that apply): None applicable Code Visit Inpatient E&M: 80715 Disch Hosp
[2017-06-17] MEDS: Ceftriaxone 1 GM/50 ML BAG IV (10:09)
[2017-06-17 10:18] VITALS: BP 126/78; PULSE 92; RESP 16; TEMP 37.6; O2SAT 97
--- NOTE | 2017-06-17 10:21 | CASEMGMT ---
Pt is discharged today. GEN gave pt information on appt w/PCP that ABBY Leon set up for September 16 at 10am, and follow up appt w/REVENUE ENFORCEMENT AGENT at [facility] for next week. Physician also prescribed Celexa for pt when she leaves here. Pt thanked GEN, no further needs are anticipated, pt home today. AMY Hilliard, CHARTER COACH DRIVER
== END 2017-06-17 13:18 | disposition home or self-care (01) | DRG 469 ==
LOC: ED 14:28 → MS2 15:25
PROVIDERS: Admitting Provider Internal Medicine; Emergency Provider Emergency Medicine; Visit Provider Internal Medicine
DX: N17.9 Acute kidney failure, unspecified (principal); N10 Acute pyelonephritis; F19.10 Other psychoactive substance abuse, uncomplicated; F32.9 Major depressive disorder, single episode, unspecified; F17.200 Nicotine dependence, unspecified, uncomplicated
CPT/HCPCS: 36415; 71045; 74176; 80048; 80053; 81001; 81025; 83605; 85025; 85027; 85610; 85730; 87040; 87086; 87088; 87804; 99283; J7030; Q9967; A4216; J0696; J2405